=== PATIENT | male | born 1965 | race Caucasian/White ===

== ENCOUNTER 2024-01-27 23:32 | Emergency (ER) | payer OTHER, SELFPAY ==
[2024-01-27 23:35] VITALS: BP 130/74
--- NOTE | 2024-01-28 00:59 | ED.GENMED ---
History of Present Illness
General
Chief Complaint: Musculo-Skeletal Complaint
Source: patient
Time Seen by Provider: 01/28/24 00:21
History of Present Illness
History of Present Illness:
58-year-old male who presents with pain in the area overlying the right scapula and the right trapezius. He states that it is point specific in that area but does radiate toward the edge of his shoulder. Patient has had this in the past about 4
years ago and states it took a little while to heal. He states he was just reaching this morning for shower door when he felt something adjust and developed the pain. The patient states that he was helping his daughter and son-in-law move over the
weekend. He denies hand numbness or tingling. Denies radiation to the hand or fingers. Denies headache or vision changes. No neck pain
Past History
Past History
ED Past Medical History: Psychiatric (Anxiety, depression)
Phy Exam
Physical Exam
Physical Exam:
CONSTITUTIONAL Vital signs reviewed, Patient alert and oriented to person, place and time. Well-appearing
HEAD atraumatic, normocephalic.
EYES eyelids normal to inspection, Extraocular muscles intact, Conjunctiva normal, Sclera normal.
NECK normal range of motion, Trachea midline, no jugular venous distention.
RESP no respiratory distress
BACK No obvious deformities, moderate tenderness noted to the right trapezius just above the scapular spine midline of the scapular spine. Clearly focal tender. He does have normal range of motion of shoulder. There is no midline or paraspinal
cervical tenderness. Normal distal pulses in the extremities
UPPER EXTREMITY Gross Range of motion normal, gross motor strength normal
LOWER EXTREMITY Gross range of motion normal, Gross motor strength normal
NEURO Speech normal, No focal motor deficits include, Tok coma scale 15, Memory normal, Cranial Nerves intact to screening exam.
SKIN Skin warm, dry, and normal in color.
PSYCHIATRIC Patient oriented to person place and time, Normal affect.
Course
Orders/Labs/Results
Orders:
Orders
01/28/24 00:59
Diazepam [Valium] 5 mg PO NOW STA
01/28/24 01:01
Ketorolac [Toradol] 60 mg IM NOW STA
Vital Signs
Initial and Last Documented VS:
Initial Vital Signs
Temp Pulse Resp BP Pulse Ox
98.6 F 87 21 130/74 95
01/27/24 23:35 01/27/24 23:35 01/27/24 23:35 01/27/24 23:35 01/27/24 23:35
Last Documented Vital Signs
Temp Pulse Resp BP Pulse Ox
98.6 F 87 21 130/74 95
01/27/24 23:35 01/27/24 23:35 01/27/24 23:35 01/27/24 23:35 01/27/24 23:35
MDM/Problems Addressed
MDM/Problems Addressed:
Trapezius spasm
*Pulse Oximetry
Patient hypoxic: no
*Critical Care Note
Total Time (30-74mins, 75-104mins- exclusive of procedures): Not Applicable
Data Reviewed
Source: patient
Further Testing Considered But Not Given:
Considered x-ray but no fall and no bony concerns
Patient Management
Escalation/DeEscalation of care consider admission/obs:
Clearly reproducible at the right trapezius. Does not radiate to the fingers to suspect cervical neuropathy but will treat with muscle relaxation and steroid
ED Attending Note
-
Portions of this chart may have been created with voice recognition software.� Occasional wrong word or��sound alike� substitutions may have occurred due to the inherent limitations of voice recognition software.
Discharge Plan
Departure
Patient Disposition: Home (Routine Discharge)
Date of Disposition: 01/28/24
Time of Disposition: 01:02
Patient with high blood pressure during this ER visit?: No
Discharge Problem:
Spasm of right trapezius muscle
Prescriptions:
New
diazepam 5 mg tablet
5 mg PO TID PRN (Reason: muscle spasm) Qty: 20 0RF
prednisone 10 mg Tablet
See Rx Instructions .ROUTE .COMPLEX Qty: 30 0RF
Rx Instructions:
Take By Mouth:
40 mg daily x3 days, 30 mg daily x3 days,
20 mg daily x3 days, 10 mg daily x3 days.
Referrals:
Santino Odell MD [Family Provider] -
Activity Restrictions/Additional Instructions:
Trapezius strain/spasm
Please rest. Apply warm compresses when muscles and spasm. Slowly stretch but do not stretch further than a pain level 5 out of 10. Return immediately for numbness, ting, motor weakness or any other concerns. Please see your doctor in the next 3
to 5 days for follow-up and reevaluation if symptoms persist.
Interventions
Interventions:
*Risk Screen - Suicide Last Done: 01/28/24 00:45
*General Assessment Last Done: 01/28/24 00:45
*Neglect/Abuse Screening Last Done: 01/28/24 00:45
ED-Musculoskeletal Assessment Last Done: 01/28/24 00:45
Discharge Date and Time
Print Language: GABONESE
[2024-01-28] MEDS: VALIUM 5 MG PO (01:05)
[2024-01-28] MEDS: TORADOL 60 MG IM (01:10)
[2024-01-28 01:15] VITALS: BP 119/65
[2024-01-28 01:17] VITALS: BP 119/65
== END 2024-01-28 01:18 | disposition home or self-care (01) ==
LOC: EMR 23:32
PROVIDERS: EMERGENCY PHYSICIAN Emergency Medicine; FAMILY PHYSICIAN Family Medicine
DX: M62.838 Other muscle spasm (principal); F41.8 Other specified anxiety disorders
CPT/HCPCS: 99282; 96372